=== PATIENT | male | born 1970 | race Caucasian/White ===

== ENCOUNTER 2018-04-17 13:03 | Emergency (ER) | payer BC ==
[~2018-04-17] VITALS: Ht 188 cm; Wt 120.2 kg
[2018-04-17 14:18] LABS: Albumin 4.3 g/dL (3.4-5.0); Calcium 9.7 mg/dL (8.5-10.1); Potassium 3.5 mmol/L (3.5-5.1)
[2018-04-17 14:19] LABS: Eosinophils # (auto) 0.1 uL; Hemoglobin 19.3 g/dL (13.5-17.5); Monocytes # (auto) 0.7 uL; Nucleated Red Blood Cells % 0.1 %; White Blood Cell 6.8 10^3/uL (4.4-10.8)
[2018-04-17 14:22] LABS: Basophils # (auto) 0.1 uL; Basophils % (auto) 0.8 % (0.0-2.0); Eosinophils % (auto) 0.9 % (0.0-7.0); Hematocrit 55.6 % (41.0-53.0); Lymphocytes # (auto) 1.1 uL; Lymphocytes % (auto) 16.1 % (10.0-50.0); Mean Corpuscular Hemoglobin 35.1 pg (28.0-32.0); Mean Corpuscular Hgb Conc. 34.7 g/dL (32.0-36.0); Monocytes % (auto) 10.3 % (0.0-12.0); Neutrophils # (auto) 4.9 uL; Neutrophils % (auto) 71.9 % (37.0-80.0); Platelet Count (auto) 111 10^3/uL (140-450); Red Cell Distribution Width 13.8 % (11.8-14.3)
[2018-04-17 14:26] LABS: BUN/Creatinine Ratio 8.4; Bilirubin, Total 5.3 mg/dL (0.2-1.0); Total Protein 8.8 g/dL (6.4-8.2)
[2018-04-17] MEDS ORDERED: chlordiazePOXIDE HCL 25 MG CAP PO ONE (16:00)
[2018-04-17] MEDS ORDERED: SODIUM CHLORIDE 0.9% 1,000 ML IV ONE (16:25)
[2018-04-17 17:00] VITALS: BP 132/80
== END 2018-04-17 17:18 | disposition home or self-care (01) ==
LOC: ER 13:03
DX: F10.230 Alcohol dependence with withdrawal, uncomplicated (principal); R07.89 Other chest pain; R11.2 Nausea with vomiting, unspecified; F17.210 Nicotine dependence, cigarettes, uncomplicated; Y90.0 Blood alcohol level of less than 20 mg/100 ml
CPT/HCPCS: 36415; 71046; 80053; 84484; 85025